=== PATIENT | female | born 1980 ===

== ENCOUNTER 2023-05-22 13:40 | Emergency (ER) | payer OTHER, SELFPAY ==
--- NOTE | ~2023-05-22 | XR_ITS ---
Examination: XR ankle LT 2V, XR ankle RT 2V Indication: fall, pain Comparison: No pertinent prior studies are currently available for comparison. Technique: 3 views of each ankle obtained Findings: Right: Diffuse soft tissue swelling about the ankle. Underlying bony structures appear to be intact with no acute fracture or dislocation. Ankle mortise alignment is unremarkable. Visualized hindfoot and midfoot grossly unremarkable as well. Left: Diffuse soft tissue swelling about the left ankle. There is a very tiny ossification seen along the inferior most aspect of the medial malleolus suggesting a small avulsion injury. Ankle mortise alignment is unremarkable. Visualized hindfoot and midfoot grossly unremarkable as well. XR/XR ankle LT 2V Impression: Diffuse soft tissue swelling about the ankles bilaterally. There is a very tiny ossification along the inferior most aspect of the left medial malleolus suggesting a small avulsion injury.
--- NOTE | ~2023-05-22 | XR_ITS ---
Examination: XR ankle LT 2V, XR ankle RT 2V Indication: fall, pain Comparison: No pertinent prior studies are currently available for comparison. Technique: 3 views of each ankle obtained Findings: Right: Diffuse soft tissue swelling about the ankle. Underlying bony structures appear to be intact with no acute fracture or dislocation. Ankle mortise alignment is unremarkable. Visualized hindfoot and midfoot grossly unremarkable as well. Left: Diffuse soft tissue swelling about the left ankle. There is a very tiny ossification seen along the inferior most aspect of the medial malleolus suggesting a small avulsion injury. Ankle mortise alignment is unremarkable. Visualized hindfoot and midfoot grossly unremarkable as well. XR/XR ankle RT 2V Impression: Diffuse soft tissue swelling about the ankles bilaterally. There is a very tiny ossification along the inferior most aspect of the left medial malleolus suggesting a small avulsion injury.
--- NOTE | 2023-05-22 13:54 | ED_ITS ---
HPI - Fall General Chief Complaint: Fall Stated Complaint: Fall/Bilateral ankle pain Time Seen by Provider: 05/22/23 16:55 Source: patient Mode of arrival: wheelchair Limitations: no limitations History of Present Illness HPI Narrative: Patient is a 42 year old assigned female at with no reported medical history presenting to the emergency department today with bilateral ankle pain. Patient states that she was walking down the stairs when she tripped and injured both of her ankles. Patient denies hitting her head or any loss of consciousness. Patient states that the left hurts worse than the right. Patient denies any dizziness, lightheadedness, abdominal pain, nausea, vomiting, fever, chills, blurry vision, double vision, loss of vision, chest pain, difficulty breathing, shortness of breath, back pain, night sweats, pain with urination, increased urinary frequency, increased urinary urgency, blood in her urine or stool, syncope or a near syncopal episode, bowel incontinence, bladder incontinence, bowel retention, bladder retention, or any other complaints at this time. MD complaint: fall Place fall occurred: home Loss of consciousness: none Prolonged down time: no Symptoms prior to fall: none Context: tripped/slipped Related Data Allergies Allergy/AdvReac Type Severity Reaction Status Date / Time No Known Allergies Allergy Verified 05/22/23 13:56 Review of Systems Constitutional: Constitutional: Reports no additional constitutional complaints, Denies chills, Denies fever(s) and Denies night sweats Eyes: Eyes: Reports no additional eye complaints, Denies blurry vision, Denies change in vision, Denies diplopia, Denies eye discharge, Denies loss of vision and Denies eye pain ENT: Denies dizziness Cardiovascular: Cardiovascular: Reports no additional cardiovascular complaints, Denies chest pain, Denies lightheadedness, Denies Loss of Consciousness and Denies dyspnea Respiratory: Respiratory: Reports no additional respiratory complaints and Denies dyspnea Gastrointestinal: Gastrointestinal: Reports no additional gastrointestinal complaints, Denies abdominal pain, Denies melena, Denies hematochezia, Denies change in bowel habits and Denies change in stool character Genitourinary: Genitourinary: Denies hematuria, Denies urinary frequency, Denies dysuria, Denies urinary incontinence, Denies urinary hesitancy and Denies urinary urgency Musculoskeletal: Musculoskeletal: Reports no additional musculoskeletal complaints, Denies numbness and Denies tingling Comments: bilateral ankle pain Neurologic: Denies dizziness, Denies loss of vision, Denies numbness and Denies tingling Psychiatric: Psychiatric: Reports no additional psychiatric complaints Endocrine: Endocrine: Reports no additional endocrine complaints Hematologic/Lymphatic: Hematologic/Lymphatic: Reports no additional hematologic/lymphatic complaints Allergic/Immunologic: Allergic/Immunologic: Reports no additional allergic/immunologic complaints PMFSH Past Medical History Attestation statement: The following information was validated with the patient. Source: old records reviewed and nursing notes reviewed Onset Date is defined in the Problem List Problems that require an onset date and time if occurred within 24 hrs of arrival to the ED Aortic Dissection and Rupture; Neurologic impairment; Cardiopulmonary Arrest; Endotracheal Intubation; Insertion or Replacement of Mechanical Circulatory Assist Device Social History Social History Advance Directives: No Advance Directives Information Provided: No Physical Exam Vital Signs: Vital Signs: Last Vital Signs Temp 98.2 F 05/22/23 13:56 Pulse 102 H 05/22/23 13:56 Resp 18 05/22/23 13:56 BP 158/107 H 05/22/23 13:56 Pulse Ox 97 05/22/23 13:56 O2 Del Method Room Air 05/22/23 13:56 BMI result Body Mass Index 31.2 Const: General: cooperative, no acute distress, alert and awake Nutritional Appearance: well nourished Orientation/consciousness: patient oriented x3 Limitations: no limitations HEENT: Head: Yes normal to inspection and Yes atraumatic Ears: hearing grossly normal bilaterally and external ears normal General nose exam: Normal external nose present, no nasal discharge noted and no epistaxis Face and sinus: Yes normal facial exam, No abrasion and No laceration Mouth: Normal oral and palatal mucosa present, no drooling and no muffled voice Eyes: General: appearance normal, both eyes and all related structures Periorbital: periorbital findings normal Eyelids: Yes eyelids normal Conjunctivae: conjunctivae normal Pupils: Equal, round and reactive pupils present EOM: EOMs intact bilaterally Neck: Neck: Yes normal visual inspection, Yes full ROM and Yes no lymphadenopathy Chest: Chest palpation & inspection: normal inspection of the chest Resp: Effort & Inspection: normal respiratory effort and able to speak in complete sentences GI: Inspection: Yes normal to inspection Neuro: General: patient oriented x3 and moves all extremities Cranial nerves: Yes Equal, round and reactive pupils present Cognition (Neuro): normal cognition Motor exam (neuro): 5/5 motor strength present throughout Sensory Exam: Normal double simultaneous stimulation for sensation Coordination: [id number] test normal Extrem: Other: pain with palpation of the left medial ankle General: Yes full ROM and Yes capillary refill normal Psych: Appearance: grossly normal Mental Status: mental status grossly normal Affect: normal affect Attitude: cooperative Thought process: Normal thought process present Thought content: Normal thought content present Insight: Good insight present (Psych) Course Course Course Narrative: this is a rapid medical exam. Defer additional HPI, ROS, PE to prior provider. 42 yo female with history of HTN, MARILIA here with bilateral ankle pain after a fall down 3 stairs on Monday. No head strike or LOC. Will obtain x-rays VSS Procedures Orthopedic Splinting/Casting Injury #1: Side: left Lower Extremity Injury Location: ankle Lower Extremity Immobilizer: boot orthosis Medical Decision Making Medical Decision Making [facility] Narrative: Patient is a 42 year old assigned female at with no reported medical history presenting to the emergency department today with bilateral ankle pain. Patient's physical exam was as noted in the physical exam portion of this note. Patient's right ankle x-ray showed no acute process. Patient's left ankle x-ray showed a possible avulsion fracture, given patient's clinical presentation, will treat. I explained my physical exam findings as well as all test results to the patient. I answered all questions asked by the patient. Patient's left ankle was placed in a walking boot, without incident. Patient's PMS was intact prior to and after placement of boot. I stressed the importance of the patient taking her medication as prescribed. I stressed the importance of the patient following up with her primary care provider and an orthopedic provider. I stressed the importance of the patient returning to the emergency department immediately if her symptoms were to worsen or if she were to develop any dizziness, shortness of breath, difficulty breathing, chest pain, blurry vision, loss of vision, nausea, vomiting, abdominal pain, fever, chills, back pain, or any other complaints. Patient verbalized agreement and understanding with this treatment plan and discharge. Differential Diagnosis Differential Diagnoses: The differential diagnosis associated with the presentation includes Ankle pain Ankle sprain Ankle fracture Admission/Observation Consideration of admission/observation: Escalation of care including admission/observation considered Patient would have been admitted to the hospital had her work up had any findings where hospital admission was appropriate and her clinical presentation warranted hospital admission. Independent Interpretation I performed an independent interpretation of an: Plain X-Ray Interpretation: My interpretation is in agreement with the radiologist's impression of these imaging studies. -- Examination: XR ankle LT 2V, XR ankle RT 2V Indication: fall, pain Comparison: No pertinent prior studies are currently available for comparison. Technique: 3 views of each ankle obtained Findings: Right: Diffuse soft tissue swelling about the ankle. Underlying bony structures appear to be intact with no acute fracture or dislocation. Ankle mortise alignment is unremarkable. Visualized hindfoot and midfoot grossly unremarkable as well. Left: Diffuse soft tissue swelling about the left ankle. There is a very tiny ossification seen along the inferior most aspect of the medial malleolus suggesting a small avulsion injury. Ankle mortise alignment is unremarkable. Visualized hindfoot and midfoot grossly unremarkable as well. XR/XR ankle LT 2V Impression: Diffuse soft tissue swelling about the ankles bilaterally. There is a very tiny ossification along the inferior most aspect of the left medial malleolus suggesting a small avulsion injury. Dictated By: Charly Navarro MD Signed By: Electronically signed by Charly Navarro MD 05/22/23 5492 Radiology Impression Discussion of test interpretation with radiology: I have reviewed the radiologist's reading. Discharge Plan Discharge Clinical Impression: Ankle fracture, left, Sprain of ankle, right Patient Disposition: Home, Self-Care Instructions: Ankle Fracture (DC), Ankle Sprain (DC), R.I.C.E. Treatment (ED), Walking Boot (ED) Additional Instructions: Follow up with your primary care provider and an orthopedic provider. Return to the emergency department immediately if your symptoms worsen or if you develop any dizziness, shortness of breath, difficulty breathing, chest pain, blurry vision, loss of vision, nausea, vomiting, abdominal pain, fever, chills, back pain, or any other complaints. Referrals: [facility] [place] [facility] [Provider Group] (Call to establish and follow up with an orthopedic provider.) Bridget Valle NP [Primary Care Provider] - Stand Alone Forms: Work/School Release Interventions: ED Discharge Assessment Last Done: 05/22/23 17:23 Discharge Date/Time: 05/22/23 17:25 Print Language: Finnish
[2023-05-22 13:56] VITALS: BP 158/107; PULSE 102; RESP 18; TEMP 36.8; O2SAT 97; BMI 31.2
--- NOTE | 2023-05-22 17:22 | PC.NURSE ---
PT WAS SEEN BY PROVIDER, PLACED IN A WALKING BOOT AND GIVEN A CANE. PLAN IS FOR FOLLOW UP WITH ORTHO
== END 2023-05-22 17:25 | disposition home or self-care (01) ==
PROVIDERS: Emergency Provider Internal Medicine; PCP Nurse Practitioner Family
DX: S82.55XA Nondisplaced fracture of medial malleolus of left tibia, initial encounter for closed fracture (principal); S93.401A Sprain of unspecified ligament of right ankle, initial encounter; W10.9XXA Fall (on) (from) unspecified stairs and steps, initial encounter; Y93.9 Activity, unspecified; Y92.9 Unspecified place or not applicable; Y99.9 Unspecified external cause status
CPT/HCPCS: 73600; 99282; 99283

== ENCOUNTER 2023-06-09 07:56 | Outpatient (AMB) | payer OTHER, SELFPAY ==
[2023-06-09 08:01] VITALS: BMI 31.2
--- NOTE | 2023-06-09 08:01 | A.OFFVIS_ITS ---
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 Patient reports that she was going down the stairs when she fell injuring bilateral ankles. Patient reports that she still has some discomfort but feels like it is getting better. 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 The patient presented to the ED on 05/22/2023 status post tripping down 3 stairs injuring her bilateral ankles on 05/20/2023. X-rays of the left ankle were obtained. She was placed in a walking boot and referred to Orthopedics. While in the office today the patient reports she still has some discomfort but feels that the ankles are getting better. Review of Systems Const All systems reviewed & are unremarkable except as noted in HPI and below Physical Exam Vital Signs: BMI result Body Mass Index 31.2 Const General: cooperative and no acute distress Orientation/consciousness: patient oriented x3 Resp Effort & Inspection: normal respiratory effort and able to speak in complete sentences Cardio Peripheral pulses: Peripheral pulses 2+ throughout Skin General skin exam: no rashes or lesions noted Neuro General: patient oriented x3 Extrem Other: Left ankle: Mild edema medial and lateral malleolus. Able to dorsiflex and plantarflex but is limited due to pain and stiffness. Sensation intact. Pedal pulse intact. Right ankle: Slight edema medial and lateral malleolus. Able to dorsiflex and plantarflex. Sensation intact. Pedal pulse intact. Assessment & Plan Assessment & Plan (1) Left ankle sprain: Code(s): S93.402A - Sprain of unspecified ligament of left ankle, initial encounter (2) Sprain of ankle, right: Code(s): S93.401A - Sprain of unspecified ligament of right ankle, initial encounter Plan Ms. Bass is a 42-year-old female who presents in the office today, as a new patient, for an evaluation of left ankle pain. The patient presented to the ED on 05/22/2023 status post tripping down 3 stairs injuring her bilateral ankles on 05/20/2023. X-rays of the left ankle were obtained. She was placed in a walking boot and referred to Orthopedics. While in the office today the patient reports she still has some discomfort but feels that the ankles are getting better. Left ankle: The tall walking boot is cutting into the back of her knee because the patient is of short stature. She has requested a short walking boot. This has been given to her, off the shelf, while in the office today. She may weight bear as tolerated. Right ankle: The patient was given a lace up ankle brace, off the shelf, while in the office today to help with stability and support. She was given a work note to allow for her to wear supportive sneakers to while at work along with the boot. The patient will be referred to physical therapy to work on ROM and modalities on the left. Follow up will be in 4-6 weeks, or sooner if needed. X-rays of the left ankle, obtained on 05/22/2023, revealed: Diffuse soft tissue swelling about the ankles bilaterally. There is a very tiny ossification along the inferior most aspect of the left medial malleolus suggesting a small avulsion injury. X-rays of the right ankle, obtained on 05/22/2023, revealed no acute fracture or dislocation. Orders: Orders PT Evaluation and Treatment Today S93.402A - Sprain of unspecified ligament of left ankle, initial encounter Patient Instructions: Scribed for Carolyn Abebe PA-C by Aspen Stroud medical billing associate, on 06/09/2023 at 8:08 am, EST. Coding Level of Care Code New Pt Level 4 (58173) Diagnoses Left ankle sprain S93.402A Sprain of ankle, right S93.401A
== END 2023-06-09 08:39 | disposition home or self-care (01) ==
PROVIDERS: PCP Nurse Practitioner Family; Visit Provider Physician Assistant
DX: S93.402A Sprain of unspecified ligament of left ankle, initial encounter (principal); S93.401A Sprain of unspecified ligament of right ankle, initial encounter
CPT/HCPCS: 99203

== ENCOUNTER → 2023-06-09 07:56 | Outpatient (BNVA) | payer OTHER, SELFPAY | PROVIDERS: PCP Nurse Practitioner Family; Visit Provider Physician Assistant ==

== ENCOUNTER 2023-07-07 08:04 | Outpatient (AMB) | payer OTHER, SELFPAY ==
--- NOTE | 2023-07-07 08:05 | MHC.OFFVIS ---
Intake Vital Signs 07/07/23 08:07 Height 5 ft Weight 160 lb BMI 31.2 Intake Visit Reasons: OV-Left ankle sprain,DOI 05/21/23 -Follow up Intake Note: Diane is a 42 year old female who presents today for a follow up of her left ankle sprain, DOI 05/21/23. Patient reports she is doing better. She states that she has been going to PT twice a week and she is seeing improvement in her ROM. Allergies No Known Allergies Allergy (Verified 07/07/23 08:07) HPI OV-Left ankle sprain,DOI 05/21/23 -Follow up HPI Details 42-year-old female who presents in the office today for a follow up of her bilateral ankle sprain. I last saw the patient in the office on 06/09/2023 where she was given a short walking boot for the left ankle and a lace up ankle brace for the right ankle. She was referred to physical therapy. While in the office today the patient reports he is doing better. She confirms attend physical therapy 2 times a week and has seen improvements in her ROM. Review of Systems Const All systems reviewed & are unremarkable except as noted in HPI and below Physical Exam Vital Signs: BMI result Body Mass Index 31.2 Const General: cooperative, healthy appearing and no acute distress Orientation/consciousness: patient oriented x3 Resp Effort & Inspection: normal respiratory effort and able to speak in complete sentences Cardio Rate: regular rate Peripheral pulses: Peripheral pulses 2+ throughout GI Palpation (GI): Soft to palpation Skin General skin exam: no rashes or lesions noted Lesions: no lesions Rashes: no rashes Neuro General: patient oriented x3 Extrem Other: Left ankle: Mild-moderate edema medial and lateral malleolus. Able to dorsiflex and plantarflex, pronate and supinate with slight stiffness. Sensation intact. Pedal pulse intact. Right ankle: Slight edema medial and lateral malleolus. Able to dorsiflex and plantarflex. Sensation intact. Pedal pulse intact. Assessment & Plan Assessment & Plan (1) Left ankle sprain: Code(s): S93.402A - Sprain of unspecified ligament of left ankle, initial encounter Plan Ms. Bass is a 42-year-old female who presents in the office today for a follow up of her bilateral ankle sprain. I last saw the patient in the office on 06/09/2023 where she was given a short walking boot for the left ankle and a lace up ankle brace for the right ankle. She was referred to physical therapy. While in the office today the patient reports he is doing better. She confirms attend physical therapy 2 times a week and has seen improvements in her ROM. The patient will continue to work with physical therapy. She may begin to wean out of the boot at this time in to supportive footwear. The patient did ask about the use of a compression sleeve, which I said is appropriate to use on the left ankle at this time. The patient is currently using one on the right ankle. Follow up will be in 4 weeks, or sooner if needed. Orders: Orders PT Evaluation and Treatment Today S93.402A - Sprain of unspecified ligament of left ankle, initial encounter Patient Instructions: Scribed by Aspen Stroud associate medical director, for Carolyn Abebe PA-C on 07/07/2023 at 8:09 am, EST. Coding Level of Care Code Est Pt Level 3 (86004) Diagnoses Left ankle sprain S93.402A
[2023-07-07 08:07] VITALS: BMI 31.2
== END 2023-07-07 08:25 | disposition home or self-care (01) ==
PROVIDERS: PCP Nurse Practitioner Family; Visit Provider Physician Assistant
DX: S93.402A Sprain of unspecified ligament of left ankle, initial encounter (principal); S93.401A Sprain of unspecified ligament of right ankle, initial encounter
CPT/HCPCS: 99213

== ENCOUNTER → 2023-07-07 08:04 | Outpatient (BNVA) | payer OTHER, SELFPAY | PROVIDERS: PCP Nurse Practitioner Family; Visit Provider Physician Assistant ==

== ENCOUNTER 2023-10-28 09:54 | Emergency (ER) | payer OTHER, SELFPAY ==
--- NOTE | ~2023-10-28 | XR_ITS ---
EXAMINATION: XR SHOULDER, RIGHT CLINICAL INFORMATION: Pain no trauma COMPARISON: None available. TECHNIQUE: Three views of the right shoulder. FINDINGS: No acute visible fracture or dislocation. Degenerative arthropathy of the glenohumeral joint greatest at the inferior margin. Joint spaces and alignment are otherwise maintained. Soft tissues are unremarkable. Visualized portions of the chest are unremarkable. XR/XR shoulder RT min 2V IMPRESSION: 1. No acute visible fracture or dislocation. 2. Degenerative arthropathy of the glenohumeral joint greatest at the inferior margin.
[2023-10-28 10:21] VITALS: BP 148/96; PULSE 91; RESP 16; TEMP 36.6; O2SAT 100; BMI 29.7
--- NOTE | 2023-10-28 13:07 | ED.EXTPRO ---
HPI - Extremity Problem General Chief complaint: Extremity Problem Stated complaint: r arm pain no known inj Time Seen by Provider: 10/28/23 13:07 Source: patient Mode of arrival: ambulatory Limitations: no limitations History of Present Illness ED Provider: Angi Figueredo PA-C HPI Narrative: 42-year-old right-hand dominant female presents the ER for evaluation of right shoulder pain that started 3 days ago. She reports waking up with the pain and is has been getting progressively worse. She reports she has limited range of motion of the right upper extremity due to pain. Pain is worse with abduction and lateral extension of the arm across her body. She denies any numbness or tingling down her arm. Denies any weakness in the arm. She has been taking ibuprofen 800 mg with brief improvement. MD Complaint: joint pain Onset (ago): day(s) (3) Location: right and upper extremity Quality: stabbing and aching Radiation: distal Relieving factors: immobilization and rest Exacerbating factors: range of motion Associated symptoms: denies other symptoms Related Data Home Medications ?Medication ?Instructions ?Recorded ?Confirmed amlodipine 2.5 mg tablet 2.5 mg PO DAILY 06/09/23 ferrous sulfate 325 mg (65 mg 325 mg PO Q OTHER DAY 06/09/23 iron) tablet (FeroSul) nitrofurantoin 1 cap PO 06/09/23 monohydrate/macrocrystals 100 mg capsule tolterodine 4 mg capsule,extended 4 mg PO DAILY 06/09/23 release 24 hr Previous Rx's ?Medication ?Instructions ?Recorded cyclobenzaprine 10 mg tablet 10 mg PO TID PRN muscle spasm #14 10/28/23 tabs ibuprofen 800 mg tablet 800 mg PO Q8H PRN pain #14 tabs 10/28/23 lidocaine 5 % topical patch 1 patch topical DAILY #15 ea 10/28/23 Allergies Allergy/AdvReac Type Severity Reaction Status Date / Time No Known Allergies Allergy Verified 10/28/23 10:22 Review of Systems Review of Systems: Yes all other systems are reviewed and are negative [facility] Social History Social History Advance Directives: No Advance Directives Information Provided: No Physical Exam Vital Signs: Vital Signs: Last Vital Signs Temp 97.8 F 10/28/23 13:20 Pulse 91 10/28/23 13:20 Resp 16 10/28/23 13:20 BP 148/96 H 10/28/23 13:20 Pulse Ox 100 10/28/23 13:20 O2 Del Method Room Air 10/28/23 13:20 BMI result Body Mass Index 29.7 Appearance: Alert. Oriented X3. No acute distress. HEENT: normal inspection CVS: Normal heart rate and rhythm. Pulses normal. Respiratory: No respiratory distress. Skin: Skin warm and dry. Normal skin color. Normal skin turgor. No rashes. Extremities: Normal inspection of the bilateral shoulders. There is tenderness of the lateral right shoulder w/ soft tissue tenderness of the anterior deltoid, palpable spasm. limited abduction of the RUE due to pain. no tenderness of the scapula or posterior shoulder. 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 normal ROM of the right elbow. Positive empty can test Neuro: Oriented X 3. No motor deficit. No sensory deficit. Medical Decision Making Medical Decision Making MDM Narrative: 42-year-old [id number] female presents the ER for evaluation of nontraumatic right shoulder pain for the last 3 days. Worse with movement and palpation. She has palpable soft tissue tenderness and tenderness of the glenohumeral joint. Limited range of motion on examination. No trauma to suggest fracture. X-ray done today and shows mild glenohumeral joint arthropathy. We discussed symptomatic treatment with NSAIDs, Tylenol, Lidoderm, muscle relaxers. We also discussed the importance of orthopedic follow-up, she will call on Monday for evaluation. Stable for discharge. Differential Diagnosis Differential Diagnoses: The differential diagnosis associated with the presentation includes Arthritis, bursitis, calcific tendinitis, rotator cuff injury, frozen shoulder, impingement, no evidence of infectious process such as septic arthritis Independent Interpretation I performed an independent interpretation of an: Plain X-Ray Interpretation: No visible fracture dislocation, agrees radiology read Radiology Impression Discussion of test interpretation with radiology: I have reviewed the radiologist's reading. Radiologist Impression: EXAMINATION: XR SHOULDER, RIGHT CLINICAL INFORMATION: Pain no trauma COMPARISON: None available. TECHNIQUE: Three views of the right shoulder. FINDINGS: No acute visible fracture or dislocation. Degenerative arthropathy of the glenohumeral joint greatest at the inferior margin. Joint spaces and alignment are otherwise maintained. Soft tissues are unremarkable. Visualized portions of the chest are unremarkable. XR/XR shoulder RT min 2V IMPRESSION: 1. No acute visible fracture or dislocation. 2. Degenerative arthropathy of the glenohumeral joint greatest at the inferior margin. Independent Historian Clinical information obtained from an independent historian. History obtained from or confirmed by: Spouse External Record Review External record reviewed: Prior outpatient radiology Prescription Management I considered prescription management with: Pain Medication Critical Care Time Critical Care Time Critical Care Time: No Discharge Plan Discharge Clinical Impression: Shoulder injury Patient Disposition: Home, Self-Care Instructions: Shoulder Pain (ED) Additional Instructions: Take the prescribed medications as directed. Continue to try to use the shoulder as able, gently do range of motion exercises as able. Recommend following up with Orthopedics in your primary care for further evaluation and treatment. EXAMINATION: XR SHOULDER, RIGHT CLINICAL INFORMATION: Pain no trauma COMPARISON: None available. TECHNIQUE: Three views of the right shoulder. FINDINGS: No acute visible fracture or dislocation. Degenerative arthropathy of the glenohumeral joint greatest at the inferior margin. Joint spaces and alignment are otherwise maintained. Soft tissues are unremarkable. Visualized portions of the chest are unremarkable. XR/XR shoulder RT min 2V IMPRESSION: 1. No acute visible fracture or dislocation. 2. Degenerative arthropathy of the glenohumeral joint greatest at the inferior margin. Prescriptions: New cyclobenzaprine 10 mg tablet 10 mg PO TID PRN (Reason: muscle spasm) Qty: 14 0RF ibuprofen 800 mg tablet 800 mg PO Q8H PRN (Reason: pain) Qty: 14 0RF lidocaine 5 % adhesive patch,medicated 1 patch topical DAILY Qty: 15 0RF Rx Instructions: leave on most painful area for up to 12 hrs No Action ferrous sulfate [FeroSul] 325 mg (65 mg iron) tablet 325 mg PO Q OTHER DAY amlodipine 2.5 mg tablet 2.5 mg PO DAILY tolterodine 4 mg capsule,extended release 24hr 4 mg PO DAILY nitrofurantoin monohyd/m-cryst 100 mg capsule 1 cap PO Ref[place]: [facility] [place] Group] (EXAMINATION: XR SHOULDER, RIGHT CLINICAL INFORMATION: Pain no trauma COMPARISON: None available. TECHNIQUE: Three views of the right shoulder. FINDINGS: No acute visible fracture or dislocation. Degenerative arthropathy of the glenohumeral joint greatest at the inferior margin. Joint spaces and alignment are otherwise maintained. Soft tissues are unremarkable. Visualized portions of the chest are unremarkable. XR/XR shoulder RT min 2V IMPRESSION: 1. No acute visible fracture or dislocation. 2. Degenerative arthropathy of the glenohumeral joint greatest at the inferior margin.) Bridget Valle NP [Primary Care Provider] - Stand Alone Forms: Work/School Release Interventions: ED Discharge Assessment Last Done: 10/28/23 13:20 Discharge Date/Time: 10/28/23 13:21 Print Language: Burkinan
[2023-10-28 13:20] VITALS: BP 148/96; PULSE 91; RESP 16; TEMP 36.6; O2SAT 100
== END 2023-10-28 13:21 | disposition home or self-care (01) ==
LOC: HO.ED 13:15
PROVIDERS: Emergency Provider Emergency Medicine; PCP Nurse Practitioner Family
DX: S49.91XA Unspecified injury of right shoulder and upper arm, initial encounter (principal); X58.XXXA Exposure to other specified factors, initial encounter; Y93.9 Activity, unspecified; Y92.9 Unspecified place or not applicable; Y99.9 Unspecified external cause status
CPT/HCPCS: 73030; 99282; 99283